=== PATIENT | male | born 1980 | race Caucasian/White ===

== ENCOUNTER 2018-11-26 11:19 | Emergency (ER) | payer OTHER ==
[2018-11-26 11:27] VITALS: BP 144/86
[2018-11-26] MEDS ORDERED: DIPH/PERTUSS(ACELL)/TETANUS VAC/PF 0.5 ML SYR (>=10YO) IM ONE (11:36)
--- NOTE | 2018-11-26 11:36 | ER Document Report ---
HPI - HPI Time Seen by Provider: 11/26/18 11:33 Pain Level: 5 Notes: Patient is a 38-year-old male with no significant past medical history presents emergency department complaining of plantar foot pain near the distal metatarsal area to the second digit. Patient states that he was walking down his hallway barefoot when he felt a pain. Patient believes that he may have stepped on something and is not sure if it was just a puncture wound or if something is embedded in his foot. Patient states that he does feel a sharp pain when he applies pressure to that area. Patient states that it did bleed initially, but has not bled since. Denies drug allergies or IV drug abuse. No other concerns or complaints. Denies any headache, fever, URI, sore throat, chest pain, palpitations, syncope, cough, shortness of breath, wheeze, dyspnea, abdominal pain, nausea/vomiting/diarrhea, urinary retention, dysuria, hematuria, loss of control of bowel or bladder, numbness/tingling, muscle paralysis/weakness, or rash. - ROS Systems Reviewed and Negative: Yes All other systems reviewed and negative Past Medical History - Social History Smoking Status: Never Smoker Family History: Reviewed & Not Pertinent - Immunizations Hx Diphtheria, Pertussis, Tetanus Vaccination: Yes Vertical Provider Document - CONSTITUTIONAL Agree With Documented VS: Yes Notes: PHYSICAL EXAMINATION: GENERAL: Well-appearing, well-nourished and in no acute distress. LUNGS: Breath sounds clear to auscultation bilaterally and equal. No wheezes rales or rhonchi. HEART: Regular rate and rhythm without murmurs, rubs, gallops. Musculoskeletal: Lt foot/ankle: No obvious swelling, ecchymosis, or deformity. No streaks or erythema. There is a small puncture appearing wound to the left plantar foot to the distal metatarsal of the second digit. There is associated tenderness to that specific area. No evidence of fluctuance or abscess. FROM to passive/active. Strength 5+/5. N/V intact distal. No bony tenderness of the foot/ankle. Achilles intact. Extremities: No cyanosis, clubbing, or edema b/l. Peripheral pulses 2+. Capillary refill less than 3 seconds. NEUROLOGICAL: Normal speech, limping gait. Normal sensory, motor exams PSYCH: Normal mood, normal affect. SKIN: Warm, Dry, normal turgor, no rashes or lesions noted. - INFECTION CONTROL TRAVEL OUTSIDE OF THE [place] IN LAST 30 DAYS: No Course - Re-evaluation Re-evalutation: 11/26/18 12:05 Patient is an afebrile, well-hydrated, 38-year-old male who presents to the ED with left plantar foot pain ?puncture wound vs non-radiopaque foreign body. Vitals are acceptable without any significant tachycardia, tachypnea, or hypoxia. PE is otherwise unremarkable for any neurovascular compromise, obvious tendon/ligament rupture, obvious fracture/dislocation, septic joint. No evidence of cellulitis or infection. No puncture through a shoe as he was baref oot. X-ray was unremarkable for any acute pathology. Patient is nontoxic- appearing. Patient is able to ambulate and weight-bear although he is limping. No other labs or imaging warranted at this time based on H&P. Tdap given today. Conservative measures otherwise for symptoms. Recheck with your PCM in 3-5 days. Schedule a consult with podiatry/orthopedics. Return to the ED with any worsening/concerning symptoms otherwise as reviewed in discharge. Patient is in agreement. - Vital Signs Vital signs: Temp Pulse Resp BP Pulse Ox 97.9 F 66 16 144/86 H 97 11/26/18 11:26 11/26/18 11:26 11/26/18 11:26 11/26/18 11:26 11/26/18 11:26 Discharge - Discharge Clinical Impression: Left foot pain Condition: Stable Disposition: HOME, SELF-CARE Additional Instructions: Keep the skin clean Wash with soap and water Tylenol/ibuprofen if needed Triple antibiotic ointment daily Monitor for any worsening symptoms Recheck with your PCM in 3-5 days Schedule appointment with podiatry/orthopedics for further evaluation and management Return to the ED with any worsening symptoms and/or development of fever, headache, chest pain, palpitations, syncope, shortness of breath, trouble breathing, abdominal pain, n/v/d, abscess, purulent discharge, red streaks, worsening swelling, or other worsening symptoms that are concerning to you. Forms: Elevated Blood Pressure Referrals: RUDY JAIN DPM [ACTIVE STAFF] - Follow up as needed [facility] [Provider Group] - Follow up as needed
--- NOTE | 2018-11-26 12:06 | RADIOLOGY REPORT (SQ) ---
EXAM DESCRIPTION: FOOT LEFT COMPLETE COMPLETED DATE/TIME: 11/26/2018 11:43 am REASON FOR STUDY: ?foreign body plantar foot . Stepped on something. COMPARISON: None. NUMBER OF VIEWS: Three views. TECHNIQUE: AP, lateral and oblique radiographic images acquired of the left foot. LIMITATIONS: None. FINDINGS: MINERALIZATION: Normal. BONES: No acute fracture or dislocation. SOFT TISSUES: No soft tissue swelling. No radiopaque foreign body. IMPRESSION: No radiographic evidence for acute fracture or radiopaque foreign body at the left foot. TECHNICAL DOCUMENTATION: JOB ID: [id number] [employer]- All Rights Reserved Reading location - IP/workstation name: [email or web address]
== END 2018-11-26 12:18 | disposition home or self-care (01) ==
LOC: ER 11:19
DX: M79.672 Pain in left foot (principal); Z23 Encounter for immunization
CPT/HCPCS: 90715; 99283

== ENCOUNTER 2019-01-31 13:27 | Emergency (ER) | payer OTHER ==
[2019-01-31] MEDS ORDERED: IBUPROFEN 800 MG TABLET PO ONE (14:22)
--- NOTE | 2019-01-31 14:29 | ER Document Report ---
HPI - HPI Patient complains to provider of: Left hand injury Time Seen by Provider: 01/31/19 14:20 Onset: Just prior to arrival Onset/Duration: Sudden Quality of pain: Achy Severity: Severe Pain Level: 4 Context: Patient presents emergency department with complaints of left hand injury. He reports left middle digit hurts the most. Reports fingers were crushed under a washing machine. Reports pain with movement. Reports possibly history of broken fingers because he is broken everything. Denies other symptoms such as fever vomiting diarrhea. No open wounds noted good cap refill. Patient is right-handed Associated Symptoms: None Exacerbated by: Movement Relieved by: Denies Similar symptoms previously: Yes Recently seen / treated by doctor: Yes Past Medical History - General Information source: Patient - Social History Smoking Status: Unknown if Ever Smoked Cigarette use (# per day): No Frequency of alcohol use: None Drug Abuse: None Family History: Reviewed & Not Pertinent Patient has suicidal ideation: No Patient has homicidal ideation: No - Medical History Medical History: Negative Renal/ Medical History: Denies: Hx Peritoneal Dialysis Surgical Hx: Negative - Immunizations Hx Diphtheria, Pertussis, Tetanus Vaccination: Yes Vertical Provider Document - CONSTITUTIONAL Agree With Documented VS: Yes Exam Limitations: No Limitations General Appearance: WD/WN, No Apparent Distress - INFECTION CONTROL TRAVEL OUTSIDE OF THE [place] IN LAST 30 DAYS: No - HEENT HEENT: Atraumatic, Normocephalic - NECK Neck: Supple - RESPIRATORY Respiratory: No Respiratory Distress - CARDIOVASCULAR Cardiovascular: Regular Rate - MUSCULOSKELETAL/EXTREMETIES Musculoskeletal/Extremeties: Tender - pt c/o Left hand phalanges with pain, left middle digit phalange with worse pain, good cap refill to all fingers. No obvious deformity no erythema swelling or warmth, reports pain with movement - NEURO Level of Consciousness: Awake, Alert, Appropriate - DERM Integumentary: Warm, Dry Course - Re-evaluation Re-evalutation: 01/31/19 15:05 X-ray negative for acute fracture. Patient will be placed in an Pete wrap instructed to take Motrin for the pain rest ice elevate follow-up with orthopedics. - Vital Signs Vital signs: Temp Pulse Resp BP Pulse Ox 98.1 F 63 18 131/71 H 96 01/31/19 13:35 01/31/19 13:35 01/31/19 13:35 01/31/19 13:35 01/31/19 13:35 - Diagnostic Test Radiology reviewed: Image reviewed, Reports reviewed - Patient presents to the emergency department with left-sided flank pain, diarrhea and feeling really tired for the past day and a half. Patient denies urinary symptoms. Reports history of UTI in the past. Reports vaginal discharge but nothing abnormal. Denies vomiting and fever Procedures - Immobilization Left Hand Pre-Proc Neuro Vasc Exam: Normal Immobilizer type: Pete wrap Performed by: RN Post-Proc Neuro Vasc Exam: Unchanged from pre-exam Discharge - Discharge Clinical Impression: Injury of left hand, Crushing injury of left hand Condition: Stable Disposition: HOME, SELF-CARE Instructions: Crush Injury ([facility]), Use of [id number]-[id number] Ibuprofen ([facility]), Ice & Elevation ([facility]) Additional Instructions: *You have been evaluated for left hand injury, crush injury *Maintain the pete wrap for comfort for three days *Rest/Ice/Elevate your hand *Follow up with orthopedics for recheck within one week for recheck -call for an appointment *Take ibuprofen as indicated for pain *Return to ED for worsening condition, changes, needs Monitor your blood pressure. Your blood pressure was elevated today. This may be because you were anxious, in pain or because you need medication. It is important to follow up with your primary care provider for full evaluation. Forms: Elevated Blood Pressure, Return to Work Referrals: [facility] [Primary Care Provider] - Follow up in 3-5 days
--- NOTE | 2019-01-31 14:56 | RADIOLOGY REPORT (SQ) ---
EXAM DESCRIPTION: HAND LEFT 3 VIEWS COMPLETED DATE/TIME: 01/31/2019 2:44 pm REASON FOR STUDY: fingers crushed by washer COMPARISON: None. EXAM PARAMETERS: NUMBER OF VIEWS: Three views. TECHNIQUE: AP, lateral and oblique radiographic images acquired of the left hand. LIMITATIONS: None. FINDINGS: MINERALIZATION: Normal. BONES: No acute fracture or dislocation. No worrisome bone lesions. JOINTS: No effusions. SOFT TISSUES: No soft tissue swelling. No foreign body. OTHER: No other significant finding. IMPRESSION: No evidence of acute bony abnormality. TECHNICAL DOCUMENTATION: JOB ID: [id number] [employer]- All Rights Reserved Reading location - IP/workstation name: [email or web address]
[2019-01-31 15:14] VITALS: BP 130/70
== END 2019-01-31 15:12 | disposition home or self-care (01) ==
LOC: ER 13:27
DX: S69.92XA Unspecified injury of left wrist, hand and finger(s), initial encounter (principal); M79.642 Pain in left hand; X58.XXXA Exposure to other specified factors, initial encounter
CPT/HCPCS: 99283